=== PATIENT | female | born 2000 | race Caucasian/White ===

== ENCOUNTER 2018-11-15 12:18 | Emergency (ER) | payer OTHER, SELFPAY ==
[2018-11-15 12:25] VITALS: BP 128/79; PULSE 78; RESP 18; TEMP 36.5; O2SAT 98
--- NOTE | 2018-11-15 12:40 | ED.GENADUL_ITS ---
Discharge Plan Disposition Patient Disposition: HOME Condition: Good Discharge Details Chief Complaint: RespSymp Clinical Impression: URI (upper respiratory infection) ED Provider: Colin Best Home Meds and New Rx's Prescriptions: No Action Basilio (28) 1 EACH tablet 1 tab-cap PO DAILY RF: 0 epinephrine [EpiPen 2-Jw] 0.3 MG/0.3 ML auto-injector 0.3 mg IM PRN RF: 0 Discharge Instructions Instructions: Upper Respiratory Infection (ED) Additional Instructions: You may continue to use your qqvs-ggp-lwgcoul cough and cold medication as directed on packaging. In addition to this you may attempt to use a decongestant such as Claritin-D, Flomax, or other symptomatic okbn-acy-mqoghwm medication. Stay well-hydrated and get plenty of rest return for any new or significant worsening of symptoms otherwise if not improving over the next week follow-up with your primary care provider for reassessment Stand Alone Forms: Work Release Referrals: Primary Care Provider [Outside] (As needed for reassessment) Medical Decision Making Patient presenting the emergency department for chief complaint of nasal congestion, sinus pressure, sore throat, fever chills body aches. Patient states this started 4 days ago and for the first 3 days she had a significant fever then this morning woke up and had no fever but continued symptoms. Physical exam shows a mildly erythematous posterior pharynx, diffuse sinus pressure without focal tenderness, no signs of meningitis, clear lung sounds, otherwise unremarkable HEENT cardiac and respiratory exam. I feel that patient has classic upper respiratory tract infectious type symptoms and presumably viral etiology. Patient was encouraged to continue to stay hydrated, use jkbf-[id number]-[id number] medications, and rest. Patient given a work note to allow for additional rest. Patient to return for new or significant worsening of symptoms otherwise to follow-up with primary care if not improving in the next week. After discussion of diagnosis and plan of care patient has no further needs, questions, or concerns and states clear understanding to return to the emergency department for any worsening symptoms. HPI General Mode of arrival: ambulatory . Date/Time Provider Initiated Documentation: 11/15/18 12:19 . Limitations to Documentation: no limitations . Information obtained by: patient and RN notes reviewed . History of Present Illness 18 year old F presents to the emergency department with the chief compl aint of nasal congestion, cold symptoms, described as moderate and similar to prior episodes, with intensity rated at 5. Quality is described as aching, and is localized to the face (sinuses). Patient started experiencing this day(s) (4) and it has been constant. No relieving factors improve symptom(s), Patient did receive the following treatments prior to arrival, other (DayQuil) Related Data Home Medications Medication Instructions Recorded Confirmed norethin-e.estradiol triphasic 1 tab-cap PO DAILY tab-cap 02/24/17 11/15/18 [Alyacen 7-7-7-28 Tablet] epinephrine [Epipen 2-Jw] 0.3 mg IM PRN 04/29/17 11/15/18 Allergies Allergy/AdvReac Type Severity Reaction Status Date / Time Opioids - Morphine Analogues Allergy GI Bleeding Unverified 11/15/18 12:30 FRUIT Allergy Severe Anaphylaxsi Uncoded 11/15/18 12:30 s General Stated Complaint: RespSymp GUILLERMO: 4 Review of Systems Constitutional Reports body ache(s), Reports chills, Reports fever(s), Reports headache(s) and Reports malaise Eyes Denies eye discharge ENT Reports as per HPI, Denies ear discharge, Denies otalgia, Reports headache(s), Reports nasal congestion, Reports nasal discharge, Denies neck pain, Reports sinus pressure, Reports sore throat and Denies throat swelling Cardiovascular Denies chest pain and Denies dyspnea Respiratory Reports cough and Denies dyspnea Musculoskeletal Denies joint swelling and Denies neck pain Integumentary/Breasts Denies rash Neurologic Reports headache(s) Allergic/Immunologic Denies throat swelling [facility] Medical History Allergic rhinitis Exam Const General: cooperative, comfortable and no acute distress Orientation: alert and awake [facility] Head: normal to inspection, normocephalic and atraumatic Ears: hearing grossly normal bilaterally and TM's normal bilaterally General nose exam: external nose normal Face and sinus: no erythema and sinus tenderness frontal and ethmoid Mouth: oral mucosae normal, no drooling, no muffled voice and no trismus Throat: tonsils normal, uvula midline and posterior oropharynx abnormal erythema (mild); no edema and no exudates Neck Neck: normal visual inspection, full ROM, no lymphadenopathy, no meningeal signs, trachea midline and supple Resp Effort & Inspection: normal respiratory effort and able to speak in complete sentences Auscultation: clear to auscultation bilaterally Cardio Rate: regular rate Rhythm: regular rhythm Heart Sounds: S1 normal, S2 normal, normal S1 and S2, no click, no gallops, no murmurs and no rubs Skin General skin exam: no rashes or lesions noted and dry skin (warm) Neuro General: alert, awake and oriented x3 Course Vital Signs Temperature 36.5 C 11/15/18 12:25 Pulse 78 11/15/18 12:25 Respiratory Rate 18 11/15/18 12:25 Blood Pressure 128/79 11/15/18 12:25 Pulse Oximetry 98 11/15/18 12:25 Temperature 36.5 C 11/15/18 12:25 Temperature Source Temporal Artery Scan 11/15/18 12:25 Pulse 78 11/15/18 12:25 Respiratory Rate 18 11/15/18 12:25 Blood Pressure 128/79 11/15/18 12:25 Blood Pressure Position Sitting 11/15/18 12:25 Pulse Oximetry 98 11/15/18 12:25 Oxygen Delivery Method Room Air 11/15/18 12:25 Oxygen Flow Rate 0 11/15/18 12:25 Pain Level 5 11/15/18 12:25
[2018-11-15 12:52] VITALS: BP 128/79; PULSE 78; RESP 18; TEMP 36.5; O2SAT 98
== END 2018-11-15 12:52 | disposition home or self-care (01) ==
LOC: ER 12:55
PROVIDERS: Emergency Provider Nurse Practitioner Family; PCP Pediatrics
DX: J06.9 Acute upper respiratory infection, unspecified (principal)
CPT/HCPCS: 99282